=== PATIENT | female | born 1970 | race Caucasian/White ===

== ENCOUNTER → 2018-07-27 | Outpatient (CLI) | payer BC ==
--- NOTE | 2018-07-27 18:41 | PN ---
PROGRESS NOTE Jenn is a 48-year-old female patient coming in for annual check regarding obstructive sleep apnea. The patient has complex obstructive sleep apnea as the patient had treatment emergent central apneas. The patient was given Servo ventilation and the patient has a Respironics ASV unit which she has been using for the past 5 years at least. She is coming in with problems with her machine. Her machine is broken. The humidification chamber is cracked and the patient is leaking a significant amount of air from the humidification chamber. The settings are essentially the same. The patient is on ASV with EPAP minimum of 9, maximum of 15 and a pressure support minimum of 0, maximum of 15. She continues to benefit from the treatment and she is waking up refreshed and alert during the day. I checked the compliance data on her machine and her AHI while on treatment is down to 1.6. Her EPAP 90% is at 9.1, and the pressor support is at 0.3. She has been averaging 8 hours and 30 minutes of ASV every night and her ASV treatment for more than 4 hours is 100%. Leak is obviously high at 88% knowing the patient is having excessive amount of leak through a crack in the humidification chamber. She has no other new complaints. She is interested in obtaining a new machine. Her weight is 258, which is 10 pounds higher than her weight from last year. She has was using AirFit P10 nose pillow. Upon further discussion, we switched her to a DreamWear nose mask which she preferred over her original mask. She has no complaints for now. Note that the patient has history of pituitary tumor. This has been resected. She has also history of factor 5 Leiden with a previous right upper lobe resection. She is on no anticoagulants for now. She mentioned symptoms of pleurisy for which I recommended pulmonary evaluation later on, at the Pulmonary [facility]. She does have history of Sjogren's disease which could be causing on and off some limited nonspecific pleurisy. Doubt pulmonary embolism at this point in time. As mentioned, she is not on any anticoagulation. REVIEW OF SYSTEMS: 12-point review of system was done. Her sleep apnea is well treated. She has some limited pleurisy on and off which could be a nonspecific finding related to her rheumatologic disorder. No headaches. No double vision. No shortness of breath, chest pain, cough and heartburn. No major hypersomnia or sleepiness during the day. No reported palpitations or cardiac arrhythmias for now although she has previous history of SVT and WPW syndrome. PHYSICAL EXAMINATION: BP is 134/81, pulse 74, respirations 16, temperature 98.4, saturation 96% on room air. [place] score 6, BMI is 42.0, weight is 258. Height is 5 feet, 5 inches, BMI is 42. GENERAL APPEARANCE: Calm, comfortable. Head is atraumatic, normocephalic. There is no JVD. No goiter or neck masses. Mallampati class IV. LUNGS: Clear to auscultation. HEART: Sounds rate and regular. Normal S1, S2. No S3. No murmurs. ABDOMEN: Soft, nontender. No organomegaly. EXTREMITIES: No edema. No cyanosis or clubbing. Neurologic is AO x3. No focal neurological deficits. PSYCHIATRIC: Negative for anxiety or depression. IMPRESSION: 1. Complex sleep apnea. Currently on ASV. No history of any systolic heart failure. 2. History of supraventricular tachycardia/WPW. 3. History of pituitary tumor. 4. Chronic bronchial asthma. 5. History of factor 5 Leiden on no anticoagulants. 6. Previous history of right upper extremity deep vein thrombosis. 7. Previous history of Sjogren's disease. 8. Generalized anxiety disorder. 9. Obesity with interval 10 pounds weight gain. Current BMI is up to 42. PLAN: 1. Will proceed with another ASV titration. 2. We will order a new ASV unit for this patient with the same setting and we will offer a DreamWear nose mask. 3. Weight loss. 4. See me in the Pulmonary Clinic in regards to her nonspecific pleurisy. 5. We will continue to follow. 6. Implement good sleep hygiene measures and we will follow. MMODL / IJN: [id number] /
== END | disposition home or self-care (01) ==
LOC: SLEEP 14:33
PROVIDERS: ATTEND Internal Medicine Critical Care Medicine
DX: G47.39 Other sleep apnea (principal); J44.9 Chronic obstructive pulmonary disease, unspecified; M35.00 Sjogren syndrome, unspecified; E66.9 Obesity, unspecified; F41.1 Generalized anxiety disorder; Z99.89 Dependence on other enabling machines and devices; Z86.79 Personal history of other diseases of the circulatory system; Z86.39 Personal history of other endocrine, nutritional and metabolic disease; Z68.41 Body mass index [BMI] 40.0-44.9, adult; Z86.2 Personal history of diseases of the blood and blood-forming organs and certain disorders involving the immune mechanism; Z86.718 Personal history of other venous thrombosis and embolism

== ENCOUNTER → 2021-07-22 | Outpatient (CLI) | payer BC ==
--- NOTE | 2021-07-23 14:15 | MM ---
Reason for exam: screening (asymptomatic). Last mammogram was performed 5 years and 3 months ago. History: Patient is postmenopausal. Took hormonal contraceptives for 6 months. Physical Findings: A clinical breast exam by your physician is recommended on an annual basis and results should be correlated with mammographic findings. MG 3D Screening Mammo W/Cad Bilateral CC and MLO view(s) were taken. Prior study comparison: April 07, 2016, bilateral MG 3d screening mammo w/cad. There are scattered fibroglandular densities. There are benign appearing round calcifications bilaterally. There is no discrete abnormality. ASSESSMENT: Benign, BI-RAD 2 RECOMMENDATION: Routine screening mammogram of both breasts in 1 year.
== END | disposition home or self-care (01) ==
LOC: RADMAMWWP 07:06
PROVIDERS: ATTEND Family Medicine
DX: Z12.31 Encounter for screening mammogram for malignant neoplasm of breast (principal); Z78.0 Asymptomatic menopausal state
CPT/HCPCS: 77063; 77067

== ENCOUNTER → 2021-09-03 | Outpatient (CLI) | payer BC ==
[~2021-09-03] MED LIST: BAMLANIVIMAB (EUA) 700 MG, ETESEVIMAB (EUA) 1,400 MG in SODIUM CHLORIDE 0.9% 100 ML IVPB ONE; SODIUM CHLORIDE 0.9% 50 ML IVPB ONE; SODIUM CHLORIDE 0.9% 500 ML 500 ML in EMPTY BAG 1 BAG IV PRN
[2021-09-03 08:45] VITALS: RESP 18; TEMP 96.4
[2021-09-03 09:29] VITALS: BP 111/71; PULSE 65
== END ==
LOC: PROCWHC3 08:03
PROVIDERS: ATTEND Internal Medicine
DX: U07.1 COVID-19 (principal); E66.9 Obesity, unspecified; Z68.41 Body mass index [BMI] 40.0-44.9, adult; Z91.041 Radiographic dye allergy status; Z88.2 Allergy status to sulfonamides
CPT/HCPCS: 96360; J3490; M0245

== ENCOUNTER → 2023-10-06 | Outpatient (CLI) | payer BC ==
--- NOTE | 2023-10-07 09:15 | MM ---
Reason for Exam: Screening (asymptomatic). Last mammogram was performed 2 year(s) and 3 month(s) ago. Patient History: Menarche at age 11. First Full-Term at age 18. Hysterectomy at age 27. Postmenopausal. Patient has history of breast feeding. Hormonal Contraceptives for 6 months. Risk Values: Nancy 5 year model risk: 0.8%. NCI Lifetime model risk: 6.1%. Prior Study Comparison: 10/03/2006 Bilateral Screening Mammogram, [facility]. 04/07/2016 Bilateral Screening Mammogram, [facility]. 07/22/2021 Bilateral Screening Mammogram, [facility]. Tissue Density: The breast tissue is almost entirely fat. Findings: Analyzed By CAD. There is no suspicious group of microcalcifications or new suspicious mass. Overall Assessment: Negative, BI-RAD 1 Management: Screening Mammogram of both breasts in [address] [facility] will attempt to contact patient to return for supplemental views and ultrasound if indicated. Patient should continue monthly self-breast exams. A clinical breast exam by your physician is recommended on an annual basis. This exam should not preclude additional follow-up of suspicious palpable abnormalities. Note on Nancy scores and lifetime risk: 1. A Nancy score greater than 3% is considered moderate risk. If this is the case, consider specialist referral to assess eligibility for a risk reducing agent. 2. If overall lifetime risk for the development of breast cancer is 20% or higher, the patient may qualify for future screening with alternating mammogram and breast MRI. Electronically signed and approved by: Jun De Oliveira DO
== END | disposition home or self-care (01) ==
LOC: RADMAMWWP 07:17
PROVIDERS: ATTEND Internal Medicine
DX: Z12.31 Encounter for screening mammogram for malignant neoplasm of breast (principal); Z78.0 Asymptomatic menopausal state
CPT/HCPCS: 77063; 77067

== ENCOUNTER → 2025-02-07 | Outpatient (CLI) | payer BC ==
--- NOTE | 2025-02-07 10:30 | MM ---
Reason for Exam: Screening (asymptomatic). Last mammogram was performed 1 year(s) and 4 month(s) ago. Patient History: Menarche at age 11. First Full-Term at age 18. Hysterectomy at age 27. Postmenopausal. Patient has history of breast feeding. Hormonal Contraceptives for 6 months. Risk Values: Nancy 5 year model risk: 0.9%. NCI Lifetime model risk: 5.9%. Prior Study Comparison: 10/03/2006 Bilateral Screening Mammogram, [facility]. 04/07/2016 Bilateral Screening Mammogram, [facility]. 07/22/2021 Bilateral Screening Mammogram, [facility]. 10/06/2023 Bilateral MG 3D screening mammo w/cad, [facility]. Tissue Density: There are scattered areas of fibroglandular density. Findings: Analyzed By CAD. Benign-appearing bilateral axillary lymph nodes are redemonstrated. There is no suspicious group of microcalcifications or new suspicious mass in either breast. Overall Assessment: Negative, BI-RAD 1 Management: Screening Mammogram of both breasts in 1 year. . Patient should continue monthly self-breast exams. A clinical breast exam by your physician is recommended on an annual basis. This exam should not preclude additional follow-up of suspicious palpable abnormalities. Note on Nancy scores and lifetime risk: 1. A Nancy score greater than 3% is considered moderate risk. If this is the case, consider specialist referral to assess eligibility for a risk reducing agent. 2. If overall lifetime risk for the development of breast cancer is 20% or higher, the patient may qualify for future screening with alternating mammogram and breast MRI. [facility], , 02/07/2025 10:27 AM. Electronically signed and approved by: Geovanni Doran M.D.
== END | disposition home or self-care (01) ==
LOC: RADMAMWWP 08:08
PROVIDERS: ATTEND Obstetrics & Gynecology
DX: Z12.31 Encounter for screening mammogram for malignant neoplasm of breast (principal); R92.323 Mammographic fibroglandular density, bilateral breasts; Z78.0 Asymptomatic menopausal state; Z92.0 Personal history of contraception
CPT/HCPCS: 77063; 77067